=== PATIENT | female | born 1995 | race African-American/Black ===

== ENCOUNTER 2024-08-02 10:33 | Emergency (ER) | payer OTHER ==
[~2024-08-02] VITALS: Ht 165.1 cm; Wt 59.0 kg
[2024-08-02] MEDS: SODIUM CHLORIDE 0.9% 1000ML 1,000 ML IV SCH (12:04)
[2024-08-02] MEDS ORDERED: VENTOLIN HFA18 GM INH (12:47)
[2024-08-02 12:59] VITALS: PULSE 62; RESP 18; TEMP 97.5; O2SAT 100
== END 2024-08-02 14:10 | disposition home or self-care (01) ==
LOC: FSED 11:00
DX: R06.02 Shortness of breath (principal); R10.13 Epigastric pain
CPT/HCPCS: 71046; 80048; 80076; 81003; 81025; 85025; 85379; 93005; 99284